=== PATIENT | female | born 1970 | race Caucasian/White ===

== ENCOUNTER → 2020-09-17 11:09 | Outpatient (BNVA) | payer SELFPAY | PROVIDERS: PCP Family Medicine; Visit Provider Family Medicine | DX: Z13.6 Encounter for screening for cardiovascular disorders (principal); R23.2 Flushing; Z79.899 Other long term (current) drug therapy | CPT/HCPCS: 80053; 80061; 84439; 84443; 85025 ==

== ENCOUNTER 2020-09-19 08:55 | Emergency (ER) | payer SELFPAY ==
[2020-09-19 09:10] VITALS: BP 154/109; PULSE 81; RESP 18; TEMP 36.9; O2SAT 99
--- NOTE | 2020-09-19 09:15 | ED_ITS ---
HPI - Nausea/Vomiting/Diarrhea General: Chief complaint: Nausea/Vomiting/Diarrhea Stated complaint: POSS FOOD POISONING Time Seen by Provider: 09/19/20 09:10 History of Present Illness: HPI Narrative: 49-year-old female presents with vomiting, cramping stomach and cramping extremities. Patient reports that 3 days ago she ate at a local restaurant. Immediately after eating she started vomiting believe she has food poisoning. That she is continue to have some vomiting. Now she has got some extremity cramping and stomach cramping. Patient denies any diarrhea. She has no fever or chills. She denies any urinary symptoms Associated nausea: Yes Associated symtoms: Reports nausea; Denies chest pain or palpitations Review of Systems Const: Reports: body aches; Denies: fever(s) or chills ENMT: Denies: throat pain Card: Denies: chest pain or palpitations Resp: Denies: dyspnea or productive cough GI: Reports: abdominal pain, nausea and vomiting : Denies: flank pain or difficulty voiding Musc: Reports: other (Please see HPI) Skin/Breast: Denies: rash or pruritus PFSH ED PFSH: Medical History No pertinent past medical history Surgical History No pertinent past surgical history Family History Father Cancer LIVER Mother Thyroid condition Social History Smoking and tobacco status: never smoked Alcohol intake: current Alcohol intake frequency: 3 or more drinks per day Alcohol type: beer Physical Exam Const: COMMON NORMALS: average body habitus and patient oriented x3 GENERAL APPEARANCE: cooperative HENMT: COMMON NORMALS: normocephalic and atraumatic HEAD & SCALP: normocephalic and atraumatic Neck/C-Spine: COMMON NORMALS: full ROM Resp: COMMON NORMALS: normal respiratory effort, No retractions and clear to auscultation bilaterally AUSCULTATION: clear to auscultation bilaterally Cardio: COMMON NORMALS: regular rate and regular rhythm RATE: regular rate RHYTHM: regular rhythm GI: COMMON NORMALS: Soft to palpation INSPECTION: Yes normal to inspection PALPATION: Yes Soft to palpation and Yes Tenderness to palpation present (GI) (Mild bilateral lower quadrant) : COMMON NORMALS: Yes no CVA tenderness BLADDER/KIDNEY EXAM: Yes no CVA tenderness Back/Pelvis: COMMON NORMALS: no CVA tenderness Extremity: COMMON NORMALS: normal to inspection and full ROM Neuro: COMMON NORMALS: patient oriented x3, moves all extremities and no focal motor deficits Psych: COMMON NORMALS: mental status grossly normal APPEARANCE: Yes grossly normal ATTITUDE: Yes calm Skin: NARRATIVE SKIN EXAM: Multiple tattoos Course Vital Signs: Vital signs: Vital Signs Temperature 98.5 F 09/19/20 09:10 Pulse Rate 72 09/19/20 11:37 Respiratory Rate 16 09/19/20 11:37 Blood Pressure 158/87 09/19/20 11:37 Pulse Oximetry 99 09/19/20 11:37 MDM - Nausea/Vomiting/Diarrhea MDM Narrative: Medical decision making narrative: Patient feeling better following IV fluids and nausea medication. I will discharge her home with Rik[facility]. Discussed with her that food poisoning is self-limiting. She should follow-up with her primary care provider if symptoms have not resolved in 2-3 more days. Lab Data: Attestation: I reviewed the patient's lab results. Labs: Lab Results 09/19/20 09/19/20 Range/Units 09:20 09:20 WBC 13.0 H (4.0-10.0) 10^3/ uL RBC 4.77 (4.1-5.3) 10^6/u L Hgb 15.2 (11.5-15.3) g/dL Hct 42.5 (37.0-47.0) % MCV 89.1 (81-99) fL MCH 31.9 (28.0-34.0) pg MCHC 35.8 (30.0-36.0) g/dL RDW 12.7 (12.1-15.1) % Plt Count 363 (130-400) 10^3/c mm MPV 9.5 (7.4-10.4) fL Neut % (Auto) 82.7 % Lymph % (Auto) 10.5 % [place] % (Auto) 5.8 % Eos % (Auto) 0.1 % Baso % (Auto) 0.4 % Neut # (Auto) 10.77 H (1.8-7.7) 10^3/u L Lymph # (Auto) 1.4 (0.8-4.8) 10^3/u L [place] # (Auto) 0.8 (0.2-0.9) 10^3/u L Eos # (Auto) 0.0 (0.0-0.8) 10^3/u L Baso # (Auto) 0.1 (0.0-0.1) 10^3/u L Nucleated RBC % (a uto) 0 % Nucleated RBCs # 0.0 /100WBC Sodium 135 L (136-145) mmol/L Potassium 3.1 L (3.5-5.1) mmol/L Chloride 92 L (98-107) mmol/L Carbon Dioxide 25 (22-29) mmol/L Anion Gap 21.1 H (5-19) BUN 15 (6-20) mg/dL Creatinine 0.8 (0.5-0.9) mg/dL GFR Calculation 75.6 L (90-130) mL/min Glucose 124 H (65-115) mg/dL Calculated Osmolal ity 282 L (285-295) mOsm/k g Calcium 9.6 (8.5-10.5) mg/dL Total Bilirubin 0.9 (0.15-1.2) mg/dL AST 27 (0-32) U/L ALT 19 (0-33) U/L Alkaline Phosphata se 75 (35-105) IU/L Total Protein 9.0 H (6.6-8.7) g/dL Albumin 4.9 (3.5-5.2) g/dL Globulin 4.1 (1.3-4.6) g/dL Lipase 21 (13-60) U/L Discharge Plan Discharge Patient Disposition: Home Clinical Impression: Gastroenteritis, Food poisoning Condition: Stable Prescriptions: New Zofran 4 mg tablet 4 mg PO Q6H Qty: 30 RF: 0 Discharge Orders: Discharge ED (Routine); Ordered 09/19/20 Ordered By: Brenton Lea Referrals: Katarzyna Melendrez DO [Primary Care Provider] - Discharge Diet: Advance as tolerated Discharge Activity: Resume usual activity Patient Instructions: Food Poisoning (ED), Opioid Safety Activity Restrictions/Additional Instructions: There are liquid diet, advance as tolerated Follow-up with your primary care provider if symptoms have not improved in 2 to 3 days Coding Level of Care Code ED Surgical Elastic Knitter for Chg Fwd Exam Comprehensive
[2020-09-19] MEDS: sodium chloride 0.9% 1,000 ML 999 ML IV (09:26)
[2020-09-19] MEDS: ondansetron 2 mg/ML SDV 2 mL 4 MG IVP (09:27)
[2020-09-19] MEDS: famotidine 20 mg/2 mL INJ IVP (09:28)
[2020-09-19 09:30] LABS: Basophils # 0.1 10^3/uL (0.0-0.1); Basophils % 0.4 %; Eosinophils % 0.1 %; Hematocrit 42.5 % (37.0-47.0); Hemoglobin 15.2 g/dL (11.5-15.3); Lymphocytes # 1.4 10^3/uL (0.8-4.8); Lymphocytes % 10.5 %; Mean Corpuscular HGB Conc 35.8 g/dL (30.0-36.0); Mean Corpuscular Hemoglobin 31.9 pg (28.0-34.0); Mean Corpuscular Volume 89.1 fL (81-99); Mean Platelet Volume 9.5 fL (7.4-10.4); Monocytes # 0.8 10^3/uL (0.2-0.9); Monocytes % 5.8 %; Neutrophils # 10.77 10^3/uL (1.8-7.7); Neutrophils % 82.7 %; Nucleated Red Blood Cells % 0 %; Platelet Count 363 10^3/cmm (130-400); Red Blood Count 4.77 10^6/uL (4.1-5.3); Red Cell Distribution Width 12.7 % (12.1-15.1)
[2020-09-19 09:45] LABS: Alanine Aminotransferase 19 U/L (0-33); Albumin Level 4.9 g/dL (3.5-5.2); Alkaline Phosphatase 75 IU/L (35-105); Aspartate Amino Transferase 27 U/L (0-32); Blood Urea Nitrogen 15 mg/dL (6-20); Calcium 9.6 mg/dL (8.5-10.5); Carbon Dioxide 25 mmol/L (22-29); Chloride 92 mmol/L (98-107); Globulin 4.1 g/dL (1.3-4.6); Glomerular Filtration Rate 75.6 mL/min (90-130); Glucose 124 mg/dL (65-115); Lipase 21 U/L (13-60); Osmolality Calculated 282 mOsm/kg (285-295); Sodium 135 mmol/L (136-145); Total Bilirubin 0.9 mg/dL (0.15-1.2)
[2020-09-19 09:47] LABS: Anion Gap 21.1 (5-19); Potassium 3.1 mmol/L (3.5-5.1)
[2020-09-19] MEDS: lactated ringers 1,000 ML 999 ML IV (10:35)
[2020-09-19] MEDS: metoclopramide 5 mg/mL SDV 2 mL IVP (10:36)
[2020-09-19 11:37] VITALS: BP 158/87; PULSE 72; RESP 16; O2SAT 99
== END 2020-09-19 11:38 | disposition home or self-care (01) ==
PROVIDERS: Emergency Provider Student in an Organized Health Care Education/Training Program; PCP Family Medicine
DX: K52.9 Noninfective gastroenteritis and colitis, unspecified (principal); A05.9 Bacterial foodborne intoxication, unspecified
CPT/HCPCS: 80053; 83690; 85025; 96361; 96374; 96375; 99283; J2405; J2765; J3490; J7030

== ENCOUNTER → 2020-11-12 11:46 | Outpatient (BNVA) | payer SELFPAY | PROVIDERS: PCP Family Medicine; Visit Provider Family Medicine | DX: Z01.419 Encounter for gynecological examination (general) (routine) without abnormal findings (principal); Z12.31 Encounter for screening mammogram for malignant neoplasm of breast; E03.9 Hypothyroidism, unspecified | CPT/HCPCS: 84439; 84443; 88175 ==

== ENCOUNTER 2020-11-15 10:32 | Outpatient (CLI) | payer SELFPAY ==
--- NOTE | 2020-11-15 11:00 | MM_ITS ---
WS: [id number] BILATERAL SCREENING DIGITAL MAMMOGRAM WITH CAD HISTORY: screening mammogram COMPARISON: None available. Bilateral CC and MLO views submitted. Computer aided detection analyzed. Breast composition: There are scattered areas of fibroglandular density. No suspicious masses, microc alcifications or architectural distortion. Benign calcification upper-outer quadrant RIGHT breast. MM/[id number] IMPRESSION: BI-RADS: 2-Benign FOLLOW UP: 1 Year Follow-up
== END 2020-11-15 10:33 | disposition home or self-care (01) ==
LOC: RADSHAW 10:36
PROVIDERS: PCP Family Medicine; Visit Provider Family Medicine
DX: Z12.31 Encounter for screening mammogram for malignant neoplasm of breast (principal)
CPT/HCPCS: 77067